=== PATIENT | female | born 1990 | race African-American/Black ===

== ENCOUNTER 2016-05-08 17:26 | Emergency (ER) | payer OTHER ==
[2016-05-08 17:36] VITALS: BMI 28.7
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
[2016-05-08] MEDS ORDERED: ACETAMINOPHEN 325 MG TABLET (FP) PO ONE (18:35)
[2016-05-08] MEDS ORDERED: ACETAMINOPHEN 325 MG TABLET (FP) ONE (20:06)
[2016-05-08 21:48] LABS: BASOPHIL 0.4 % (0-2.0); EOSINOPHIL 0.7 % (0-4.5); MCH 30.7 pg (25.7-33.7); MCHC 33.4 g/dl (32.0-36.0); MEAN PLT VOLUME 10.3 fl (7.5-11.1); NEUTROPHILS 64.7 % (42.8-82.8); PLATELET COUNT 248 K/MM3 (134-434); RDW 14.4 % (11.6-15.6); WHITE BLOOD COUNT 10.4 K/mm3 (4.0-10.0)
[2016-05-08 22:14] LABS: URINE MARIJUANA THC NEGATIVE ng/ml (CUTOFF=50)
[2016-05-08 22:14] LABS: ALBUMIN 4.1 g/dl (3.4-5.0); ANION GAP 10 (8-16); BILIRUBIN,TOTAL 0.4 mg/dL (0.2-1.0); CALCIUM 8.7 mg/dL (8.5-10.1); CO2 27 mmol/L (21-32); CREATININE 0.6 mg/dL (0.55-1.02); GLUCOSE,RANDOM 126 mg/dL (74-106); SALICYLATE < 4.0 mg/dl (0.0-30.0); SGOT/AST 6 U/L (15-37); SGPT/ALT 13 U/L (12-78); TOT PROT 7.7 g/dl (6.4-8.2)
[2016-05-08 22:22] LABS: ALK PHOS 71 U/L (45-117); THYROID STIMULATING HORMONE 1.04 uIU/ml (0.358-3.74)
[2016-05-09 01:02] LABS: URINE APPEARANCE SLCLOUDY; URINE BILIRUBIN NEGATIVE (NEGATIVE); URINE COLOR YELLOW; URINE GLUCOSE (UA) NEGATIVE (NEGATIVE); URINE KETONE TRACE (NEGATIVE); URINE LEUK ESTERASE NEGATIVE (NEGATIVE); URINE NITRITE POSITIVE (NEGATIVE); URINE PROTEIN NEGATIVE (NEGATIVE); URINE UROBILINOGEN NEGATIVE E.U./dl (0.2-1.0)
[2016-05-09 01:08] LABS: URINE BLOOD 3+ (NEGATIVE)
[2016-05-09 01:10] LABS: URINE BACTERIA RARE /hpf (NONE SEEN); URINE MUCUS RARE; URINE RBC 1 /hpf (0-3); URINE WBC 5 /hpf (3-5)
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
[2016-05-09 11:44] VITALS: BP 116/84; PULSE 74; TEMP 98.2
--- NOTE | 2016-05-09 12:37 | EKG ---
Test Reason : Blood Pressure : / mmHG Vent. Rate : 066 BPM Atrial Rate : 066 BPM P-R Int : 146 ms QRS Dur : 080 ms QT Int : 400 ms P-R-T Axes : 027 040 023 degrees QTc Int : 419 ms NORMAL SINUS RHYTHM WITH SINUS ARRHYTHMIA NORMAL ECG NO PREVIOUS ECGS AVAILABLE Confirmed by NAZANIN TORRES MD ([id number]) on 05/09/2016 12:36:52 PM Referred By: Confirmed By:NAZANIN TORRES MD
== END 2016-05-09 11:25 | disposition home or self-care (01) ==
LOC: JER 17:26
DX: S06.899A Other specified intracranial injury with loss of consciousness of unspecified duration, initial encounter (principal); Y04.2XXA Assault by strike against or bumped into by another person, initial encounter; Y93.89 Activity, other specified; Y92.038 Other place in apartment as the place of occurrence of the external cause; Y07.01 Husband, perpetrator of maltreatment and neglect
CPT/HCPCS: 36415; 70450-TC; 80053; 80307; 81003; 81015; 84443; 84703; 85025; 93005; 93010; 99285-25